=== PATIENT | male | born 1990 | race Caucasian/White ===

== ENCOUNTER 2020-11-13 17:10 | Emergency (ER) | payer MEDICAID, SELFPAY ==
--- NOTE | ~2020-11-13 | XR_ITS ---
XR elbow RT min 3V DATE: 11/13/2020 17:42 INDICATION: Fall, elbow injury, pain, swelling, redness TECHNIQUE: 4 views COMPARISON: None FINDINGS: No fracture or dislocation or joint effusion. No periosteal reaction or bone destruction. IMPRESSION: No significant abnormality Reviewed, dictated and finalized at location A. IMPRESSION: No significant abnormality
[2020-11-13 17:23] VITALS: BP 161/86; PULSE 91; RESP 18; TEMP 36.9; O2SAT 99
--- NOTE | 2020-11-13 18:33 | ED.SKABFB ---
HPI - Skin/Abscess/Foreign Bdy General Chief complaint: Skin/Abscess/Foreign Body Stated complaint: R ELBOW REDNESS Time Seen by Provider: 11/13/20 17:44 Source: patient and family Mode of arrival: ambulatory Limitations: no limitations History of Present Illness HPI narrative: 30-year-old male Patient is in good health About 2 weeks ago he was on vacation and hiking in [place] and slipped while playing a waterfall and cracked his elbow on a rock It was a little sore initially but now is mildly erythematous and swollen in the area of the olecranon bursa He has full range of motion and there is no distal neurovascular symptoms No fever, and no redness extending up the arm Related Data Allergies Allergy/AdvReac Type Severity Reaction Status Date / Time Yellow Jacket Allergy Unknown Swelling Uncoded 03/28/18 21:24 Review of Systems Review of Systems: All systems reviewed & are unremarkable except as noted in HPI and below Constitutional: Constitutional: Reports no additional constitutional complaints, Denies chills, Denies fever(s) and Denies headache(s) ENT: Denies headache(s) Cardiovascular: Cardiovascular: Denies dyspnea Gastrointestinal: Gastrointestinal: Denies vomiting Musculoskeletal: Musculoskeletal: Denies deformity, Reports arthralgias, Reports joint swelling and Denies numbness Integumentary/Breasts: Skin/Breast: Reports rash and Denies wounds Neurologic: Denies numbness Hematologic/Lymphatic: Hematologic/Lymphatic: Denies easy bleeding and Denies easy bruising PMFSH Social History Social History Gender identity (if verbalized by the patient): Male Exam Const: General: cooperative and no acute distress Orientation/consciousness: patient oriented x3 (alert) HENMT: Head: normal to inspection, normocephalic and atraumatic Ears: external ears normal General nose exam: no epistaxis Eyes: Conjunctivae: conjunctivae normal EOM: EOMs intact bilaterally Neck: Neck: normal visual inspection, supple and no JVD Resp: Effort & Inspection: normal respiratory effort and not labored Auscultation: other (BS =) Skin: General skin exam: no rashes or lesions noted Neuro: General: patient oriented x3 (alert) and moves all extremities Speech: normal speech Extrem: Other: Right olecranon bursa, small effusion, mildly tender, mildly erythematous over the olecranon, full range of motion of the elbow in all directions, normal peripheral pulses sensation cap refill Psych: Affect: normal affect Course Vital Signs Vital signs: Vital Signs Temperature 36.9 C 11/13/20 17:23 Pulse Rate 91 11/13/20 17:23 Respiratory Rate 18 11/13/20 17:23 Blood Pressure 161/86 H 11/13/20 17:23 Pulse Oximetry 99 11/13/20 17:23 Temperature 36.9 C 11/13/20 17:23 Pulse Rate 91 11/13/20 17:23 Respiratory Rate 18 11/13/20 17:23 Blood Pressure 161/86 H 11/13/20 17:23 Pulse Oximetry 99 11/13/20 17:23 Discharge Plan Discharge Clinical Impression: Infection of right olecranon bursa Patient Disposition: Home, Self-Care Condition: Stable Instructions: Antibiotic Form, Cellulitis (ED), Elbow Bursitis (ED) Additional Instructions: In addition to antibiotic, please take [id number] Aleve twice a day, and ideally cover your elbow with a to protect it from minor knocks and bumps while it heals up Prescriptions: New cephalexin 500 mg capsule 500 mg PO Q6H 7 Days Qty: 28 RF: 0 Follow-up/Referrals: Clayton Pickering MD [Physician] - (Primary care in this area, as needed) [facility] [Primary Care Provider] -
[2020-11-13 18:39] VITALS: BP 144/100; PULSE 89; RESP 12; O2SAT 99
[2020-11-13 19:03] VITALS: BP 135/98
== END 2020-11-13 18:46 | disposition home or self-care (01) ==
PROVIDERS: Emergency Provider Emergency Medicine
DX: M71.121 Other infective bursitis, right elbow (principal)
CPT/HCPCS: 73080; 99283

== ENCOUNTER 2021-09-06 11:01 | Emergency (ER) | payer MEDICAID, SELFPAY ==
--- NOTE | ~2021-09-06 | XR_ITS ---
EXAMINATION: XR chest 2V DATE: 09/06/2021 11:45 INDICATION: Cough. Fever. TECHNIQUE: Frontal and lateral views of the chest were obtained. COMPARISON: Chest 2 views 03/28/2018 FINDINGS: The chest demonstrates clear lungs without pneumonia, pleural effusion, or pneumothorax. Th e heart size is normal. IMPRESSION: 1. No acute cardiopulmonary disease. Reviewed, dictated and finalized at location A.
--- NOTE | 2021-09-06 11:14 | ED.URI ---
HPI - URI/Sore Throat General Chief Complaint: Upper Respiratory Infection Stated Complaint: headache, cough Time Seen by Provider: 09/06/21 11:08 Source: patient History of Present Illness HPI Narrative: Patient presents with cough. Patient reports he has been coughing for the past 2 days getting progressively worse today he had subjective fevers and chills so he came to the ER for further evaluation. He also reported some hemoptysis today. He reports he has previously had bronchitis and thinks maybe something similar is happening today. Denies any known sick contacts denies any nausea or vomiting. Reports his cough is so severe it is causing some sore throat and headache. He took ibuprofen and Excedrin prior to come to the ER and is not noted any significant benefit. Denies recent hospitalizations recent surgeries recent long travel prior history of blood clots. He reports he does vape. Related Data Allergies Allergy/AdvReac Type Severity Reaction Status Date / Time Yellow Jacket Allergy Unknown Swelling Uncoded 03/28/18 21:24 Review of Systems Review of Systems: CONSTITUTIONAL: Denies fever, chills, or sweats. EYES: Denies visual changes, redness, or discharge. ENT: Denies rhinorrhea, congestion, sore throat, or otalgia. CARDIOVASCULAR: Denies chest pain, palpitations, or edema. RESPIRATORY: Reports productive cough GASTROINTESTINAL: Denies abdominal pain, nausea, vomiting, or diarrhea. GENITOURINARY: Denies dysuria or hematuria. SKIN: Denies rash or itching. MUSCULOSKELETAL: Denies back pain, joint pain, or myalgia. NEUROLOGIC: Denies headache, numbness, dizziness, or weakness. PSYCHIATRIC: Denies anxiety or depression. All systems reviewed & are unremarkable except as noted in HPI and below PMFSH Past Medical History Medical History (Updated 09/06/21 @ 12:38 by Ruslan David MD) Bronchitis Social History Social History (Updated 09/06/21 @ 11:16 by Ruslan David MD) Tobacco type: e-cigarettes/vaping Gender identity (if verbalized by the patient): Male Exam Narrative: GENERAL: Well-appearing, well-nourished, and in no acute distress. HEAD: Normocephalic, atraumatic. EYES: PERRLA and EOMI. ENT: Nares clear, no rhinorrhea or epistaxis. Mucous membranes moist. Erythema in the posterior pharynx NECK: Supple. No masses. No JVD CHEST: Clear to auscultation. No respiratory distress. No wheezes rales or rhonchi HEART: Regular rate and rhythm. No murmur heard. Normal peripheral pulses. EXTREMITIES: Normal range of motion. No edema. SKIN: Warm, dry, no rash. NEURO: No focal deficits. Alert and oriented x3. PSYCH: Normal mood and affect. Course Reevaluation(s) Reevaluation #1: Patient reports feeling much improved after DuoNeb treatment. Work-up reviewed with patient. Patient is comfortable with outpatient plan Date: 09/06/21 Time: 12:36 Vital Signs Vital signs: Vital Signs Temperature 37.2 C 09/06/21 11:19 Pulse Rate 110 H 09/06/21 11:19 Respiratory Rate 20 09/06/21 11:19 Blood Pressure 144/98 H 09/06/21 11:19 Pulse Oximetry 97 09/06/21 11:19 Temperature 37.2 C 09/06/21 11:19 Pulse Rate 78 09/06/21 12:50 Respiratory Rate 16 09/06/21 12:50 Blood Pressure 120/90 09/06/21 12:50 Pulse Oximetry 98 09/06/21 12:50 MDM - URI/Sore Throat MDM Narrative Medical decision making narrative: H&P as above, vss, pt looks clinically well, exam with clear lungs, labs clinically unremarkable, img clinically unremarkable, additional labs/img considered, symptomatic relief available as needed, patient treated with duo nebs on reevaluation pt continues to looks clinically well and reports feeling much improved. Suspect viral bronchitis, dns severe sepsis consider dehydration, PE, dissection, pneumothorax, bacterial pneumonia. plan to tx/monitor as op w/ pcm f/u findings/plan discussed with pt, pt agree/comfortable with plan, return precautions given. Patient was counseled on his vap
[2021-09-06 11:19] VITALS: BP 144/98; PULSE 110; RESP 20; TEMP 37.2; O2SAT 97
[2021-09-06 11:30] VITALS: PULSE 98; RESP 12
[2021-09-06] MEDS: ALBUTEROL SULFATE NEB 2.5 MG/0.5 ML INH 5 MG INHALATION (11:34)
[2021-09-06] MEDS: IPRATROPIUM BR 0.02% INH SOLN 0.5 MG/2.5 ML VIAL INHALATION (11:34)
[2021-09-06 11:35] VITALS: PULSE 99; RESP 12
[2021-09-06] MEDS: SODIUM CHLORIDE 0.9% IV 1,000 ML 999 ML IV CONT (11:38)
[2021-09-06 11:43] LABS: Basophils Percent Auto 0.5 % (0.2-1.2); Eosinophils Absolute Auto 0.1 K/mm3 (0-0.3); Eosinophils Percent Auto 1.1 % (0-4.4); Hematocrit 46.5 % (42.0-52.0); Hemoglobin 15.8 g/dL (14.0-18.0); Immature Granulocyte Absolute 0.02 K/mm3 (0.00-0.031); Immature Granulocyte Percent A 0.2 % (0-0.5); Lymphocytes Absolute Auto 1.15 K/mm3 (0.9-3.2); Lymphocytes Percent Auto 13.7 % (18.3-44.2); Mean Corpuscular Hemoglobin 30.8 pg (26-34); Mean Corpuscular Volume 90.6 fl (80-100); Mean Platelet Volume 9.3 fl (7.4-10.4); Monocytes Percent Auto 11.3 % (2.6-8.5); Neutrophils Absolute Auto 6.2 K/mm3 (1.3-6.7); Neutrophils Percent Auto 73.2 % (45.5-73.1); Platelet Count Result 249 k/mm3 (150-375); Red Blood Count 5.13 M/mm3 (4.6-6.20); Red Cell Distribution Width 12.6 % (11.5-14.5); White Blood Count 8.4 K/mm3 (4.5-10.0)
[2021-09-06 12:03] LABS: Alanine Aminotransferase 41 U/L (4-50); Albumin Level 4.6 g/dL (3.5-5.1); Alkaline Phosphatase 86 U/L (38-126); Anion Gap 9 mmol/L (8-16); Aspartate Amino Transferase 37 U/L (17-59); Bilirubin,Total 0.4 mg/dL (0.2-1.3); Blood Urea Nitrogen 12 mg/dL (9-20); Calcium 9.1 mg/dL (8.4-10.2); Carbon Dioxide 26 mmol/L (22-30); Chloride 102 mmol/L (98-107); Estimated CRCL calculation 108 ml/min; Estimated Glomerular Filt Rate > 60; Glucose 107 mg/dL (65-110); Sodium 137 mmol/L (137-145)
[2021-09-06 12:05] VITALS: O2SAT 90
[2021-09-06 12:10] VITALS: O2SAT 99
[2021-09-06 12:18] LABS: SARS-CoV-2 RNA PCR Negative
[2021-09-06 12:50] VITALS: BP 120/90; PULSE 78; RESP 16; O2SAT 98
== END 2021-09-06 12:52 | disposition home or self-care (01) ==
PROVIDERS: Emergency Provider Emergency Medicine
DX: J40 Bronchitis, not specified as acute or chronic (principal); F17.290 Nicotine dependence, other tobacco product, uncomplicated; Z20.822 Contact with and (suspected) exposure to COVID-19
CPT/HCPCS: 36415; 71046; 80053; 85025; 87804; 94640; 96360; 99283; C9803; J7030; U0003; U0005

== ENCOUNTER 2022-09-24 08:32 | Emergency (ER) | payer MEDICAID, SELFPAY ==
--- NOTE | ~2022-09-24 | XR_ITS ---
EXAMINATION: XR shoulder RT min 2V INDICATION: Right shoulder pain TECHNIQUE: Four views of the right shoulder are submitted. COMPARISON: None FINDINGS: Normal alignment. No fracture. Glenohumeral and acromioclavicular joint spaces are normal. Soft tissues are unremarkable. IMPRESSION: 1. No acute osseous abnormality. Reviewed, dictated and finalized at location L.
[2022-09-24 08:37] VITALS: BP 156/113; PULSE 77; RESP 18; TEMP 36.4; O2SAT 100
--- NOTE | 2022-09-24 09:18 | ED.UPPEXIN ---
HPI - Extremity Injury (Upper) General Chief Complaint: Extremity Injury, Upper Stated Complaint: right shoulder pain Time Seen by Provider: 09/24/22 08:53 History of Present Illness HPI narrative: Patient is a 32-year-old male here for evaluation of right shoulder pain x1 day. Patient states that he was washing his hair in the shower when he felt a tightness in his right shoulder and believes he heard an audible pop . Since the incident he has had pain in his right posterior shoulder with range of motion. He has attempted Tylenol, meloxicam and methocarbamol that were prescribed for previous back injury without relief. He has no pain at rest but has pain with external and internal rotation. No weakness, numbness, tingling, neck pain or further injury sustained. Related Data Allergies Allergy/AdvReac Type Severity Reaction Status Date / Time Yellow Jacket Allergy Unknown Swelling Uncoded 09/24/22 08:42 Review of Systems Review of Systems: Gen.: Denies fevers or chills Eyes: Denies eye pain or visual change ENT: Denies congestion Respiratory: Denies shortness of breath or cough CV: Denies chest pain or palpitations GI: Denies abdominal pain nausea, emesis or diarrhea denies burning, urgency, frequency or hematuria Musculoskeletal: Reports right shoulder pain Neuro: Denies numbness, tingling, weakness or focal weakness Skin: Denies rash Except as documented, all other systems reviewed and negative PMFSH Past Medical History Medical History Bronchitis Social History Social History (Updated 09/06/21 @ 11:16 by Ruslan DavidMD) Tobacco type: e-cigarettes/vaping Gender identity (if verbalized by the patient): Male Exam Narrative: APPEARANCE: Well appearing, no pain in distress, well-nourished. Head: Normocephalic and atraumatic. EYES: PERRLA/EOMI, conjunctivae clear NOSE: No nasal drainage EARS: External ear normal in appearance THROAT: Oropharynx is clear. Mucous membranes are moist. NECK: Supple. No adenopathy, no masses. RESPIRATORY: Airway patent, respirations nonlabored. Clear to auscultation bilaterally, no rales, rhonchi, wheezing. CARDIOVASCULAR: Regular rate and rhythm without murmurs, rubs, or gallops. ABDOMINAL: Normoactive bowel sounds. Soft, nontender, nondistended. No rebound tenderness or guarding. MUSCULOSKELETAL: There is some paraspinal muscle tenderness along the right cervical spine. There is no bony tenderness to palpation along the clavicle, humeral head, olecranon or hand. Patient has 5 out of 5 strength in the upper extremity but does report pain with range of motion, particularly abduction past 90 degrees. Hawkin's test is positive. Empty can test is positive. NEURO: Normal speech. No focal neurologic deficits. SKIN: Skin is warm and dry. No rashes. PSYCHIATRIC: Normal affect/mood. Course Vital Signs Vital signs: Vital Signs Temperature 97.5 F L 09/24/22 08:37 Pulse Rate 77 09/24/22 08:37 Respiratory Rate 18 09/24/22 08:37 Blood Pressure 156/113 H 09/24/22 08:37 Pulse Oximetry 100 09/24/22 08:37 Oxygen Delivery Room Air 09/24/22 08:37 Temperature 97.5 F L 09/24/22 08:37 Pulse Rate 77 09/24/22 08:37 Respiratory Rate 18 09/24/22 08:37 Blood Pressure 156/113 H 09/24/22 08:37 Pulse Oximetry 100 09/24/22 08:37 Oxygen Delivery Room Air 09/24/22 08:37 MDM - Extremity Injury (Upper) MDM Narrative Medical decision making narrative: 32-year-old male here for evaluation of right shoulder pain over the past day, onset after he was taking a shower and washing his hair, did feel a pop in his shoulder. Patient has no gross deformities on exam, he does have some tenderness to palpation along the paraspinal musculature of the neck. He has a positive Wu and empty can test, but does have full range of motion in the shoulder. Considered fracture, dislocation, rotator cuff tear.
[2022-09-24] MEDS: KETOROLAC 30 MG/ML VIAL (*BKC) IM (09:29)
[2022-09-24] MEDS: LIDOCAINE 5% PATCH 1 PATCH TRANSDERM (09:30)
== END 2022-09-24 09:35 | disposition home or self-care (01) ==
PROVIDERS: Emergency Provider Physician Assistant
DX: S43.401A Unspecified sprain of right shoulder joint, initial encounter (principal); X50.0XXA Overexertion from strenuous movement or load, initial encounter
CPT/HCPCS: 73030; 96372; 99283; A9270; J1885

== ENCOUNTER 2022-12-10 10:45 | Outpatient (RCR) | payer MEDICAID, OTHER, SELFPAY ==
--- NOTE | 2022-10-24 17:14 | OPREHPOC ---
Outpatient Therapy Plan of Care This is a Multidisciplinary Plan of Care that may contain components documented by all disciplines (PT, OT, and ST.) PT Problem 1 PT Problem #1 Knowledge Deficit PT Goal 1 Goal Independent with HEP Target Visit 6 PT Problem 2 PT Problem #2 Pain PT Goal 1 Goal decrease pain to 1/10 at its worst Target Visit 6 PT Goal 2 Goal Centralization of symptoms to the shoulder Target Visit 6 PT Problem 3 PT Problem #3 Impaired Range of Motion PT Goal 1 Goal L shoulder active range of motion of abduction 165 degrees external rotation T3 Internal rotation T8 Target Visit 6 PT Problem 4 PT Problem #4 Impaired Strength PT Goal 1 Goal no pain with manual muslce testing. Target Visit 6
--- NOTE | 2022-10-24 17:14 | PTOPEVAL1 ---
Assessment and note entered by Randal Mann, PT Evaluation Information Assessment Status Evaluation Diagnosis R shoulder pain with radiating symptoms Onset 09/23/22 Subjective Information Patient went to the ER on the 24 of September after reaching above his head to shampoo his hair the previous night. X-ray negative, seen by ortho and given steroid which he reports has made severe pain manageable. Is left handed so has not been doing much with his R arm. Has numbness and tingling running down to his hands along with pain up his neck, and into his shoulder blades, Reported Pain Level Pain Score 3: Self Report Assessment PT Clinical Summary Jesu is a 32 year old male coming into the clinic with R shoulder pain. He has a painful arc in flexion and abduction along with a positive lift off test and pain with resisted abduction, flexion, external rotation, scapular retraction and elevation. Decreased shoulder range of motion and tenderness from suboccipitals, upper traps, and acromion process. Physical therapy will work on stretching and relaxing the upper traps, suboccipitals along with improving range of motion in the shoulder and below shoulder height strengthening. Modalities and manual therapy as needed for pain control. Plan of Care Interventions Electrical Stimulation,Gait Training,Hot Pack/Cold Pack,Manual Therapy,Mechanical Traction,Neuro Re- education,Patient/Caregiver Education,Therapeutic Activities,Therapeutic Exercise,Ultrasound Other Interventions taping, cupping, IASTM PT Services Indicated Yes Treatment Frequency and 1-2x/wk for 4 weeks Duration These treatments will address the objective and functional deficits as defined above. The patient will be advanced safely and appropriately in order for the patient to progress towards his/her prior level of function. Additional exercises will be introduced and as well as a comprehensive home exercise program upon discharge, if needed, ?to ensure carryover of functional gains achieved in the clinic. This treatment plan has been reviewed and agreement upon by the patient.
--- NOTE | 2022-10-30 15:40 | PCPTNOTE ---
Patient did not show up for scheduled appointment this date. Called and spoke with Pt. He apologized I completely forgot that was today. Reassured Pt and informed him, his next appointment is Friday11/05/22 @ 11:15. Pt assured he would be there.
--- NOTE | 2022-11-14 16:03 | PCPTNOTE ---
Pt had to cancel today due to being held over at work. Pt rescheduled for tomorrow.
--- NOTE | 2022-11-20 15:12 | PCPTNOTE ---
Patient called & cancelled scheduled appointment this date due to transportation issues.
--- NOTE | 2022-12-10 16:29 | PTOPEVDC ---
Assessment and note entered by Roque Arellano, PT Thank you for referring Jesu Fong to [facility].? An evaluation has been completed. No further treatment is needed. Evaluation Information Assessment Status Discharge Diagnosis R shoulder pain with radiating symptoms Onset 09/23/22 Subjective Information Patient reports that he feels therapy has really helped. He is denying pain with activity and is 90 % better than when he first came to therapy. No concerns at this time and has good understanding of HEP for alf progress. Reported Pain Level Pain Score 0: Self Report Assessment PT Clinical Summary Patient met all of his personal and clinical goals for therapy at this time. He is reporting no pain or discomfort with cervical and shoulder motion. Has a good understanding of HEP and able to reflect it in therapy. Suitable for Discharge at this time. Plan of Care Interventions Electrical Stimulation,Gait Training,Hot Pack/Cold Pack,Manual Therapy,Mechanical Traction,Neuro Re- education,Patient/Caregiver Educati,Therapeutic Activities,Therapeutic Exercise,Ultrasound Other Interventions taping, cupping, IASTM PT Services Indicated Yes Treatment Frequency and 1-2x/wk for 4 weeks Duration
--- NOTE | 2022-12-10 16:30 | OPREHPOC ---
Outpatient Therapy Plan of Care This is a Multidisciplinary Plan of Care that may contain components documented by all disciplines (PT, OT, and ST.) PT Problem 1 PT Problem #1 Knowledge Deficit PT Goal 1 Goal Independent with HEP Target Visit 6 Progress Met PT Problem 2 PT Problem #2 Pain PT Goal 1 Goal decrease pain to 1/10 at its worst Target Visit 6 Progress Met PT Goal 2 Goal Centralization of symptoms to the shoulder Target Visit 6 Progress Met PT Problem 3 PT Problem #3 Impaired Range of Motion PT Goal 1 Goal L shoulder active range of motion of abduction 165 degrees external rotation T3 Internal rotation T8 Target Visit 6 Progress Met PT Problem 4 PT Problem #4 Impaired Strength PT Goal 1 Goal no pain with manual muslce testing. Target Visit 6 Progress Met
== END 2022-12-13 11:32 | disposition home or self-care (01) ==
LOC: ANHPT 10:45
PROVIDERS: Visit Provider Physician Assistant Surgical
DX: M54.12 Radiculopathy, cervical region (principal); S46.911D Strain of unspecified muscle, fascia and tendon at shoulder and upper arm level, right arm, subsequent encounter
CPT/HCPCS: 97014; 97110; 97140; 97161; 99199; G0283

== ENCOUNTER 2023-09-22 19:28 | Emergency (ER) | payer SELFPAY ==
--- NOTE | ~2023-09-22 | XR_ITS ---
EXAM: XR shoulder RT min 2V DATE: 09/22/2023 20:02 HISTORY: PT FELL OFF MOVING WORK TRUCK TODAY . COMPARISON: None available. FINDINGS: Normal mineralization. No fracture or dislocation. No lytic or blastic lesion. Joint space s are maintained. No erosion or periosteal change. Soft tissues within normal limits. IMPRESSION: No acute osseous finding in the right shoulder. Reviewed, dictated and finalized at location K.
--- NOTE | ~2023-09-22 | XR_ITS ---
EXAM: XR knee LT min 4V DATE: 09/22/2023 20:02 HISTORY: PT FELL OFF MOVING WORK TRUCK TODAY . COMPARISON: None available. FINDINGS: Normal mineralization. No fracture or dislocation. No lytic or blastic lesion. Mild knee o steoarthritis. No erosion or periosteal change. Mild anterior soft tissue swelling. IMPRESSION: No acute osseous finding in the left knee. Reviewed, dictated and finalized at location K.
[2023-09-22 19:45] VITALS: BP 155/100; PULSE 94; RESP 18; TEMP 36.6; O2SAT 100
--- NOTE | 2023-09-22 21:01 | PC.NURSE ---
Pt ambulatory to barn [facility] i am not going to wait anylonger. Do you know where I am on the list? I am going to go, ill just call my dr in the morning. Pt informed if he felt like he needs to be seen, he is welcome to come back any time.
== END 2023-09-22 21:01 | disposition left against medical advice (07) ==
LOC: ANHED 21:12
PROVIDERS: Emergency Provider Emergency Medicine
DX: M25.511 Pain in right shoulder (principal)
CPT/HCPCS: 73030; 73564; 99199

== ENCOUNTER 2024-12-22 19:17 | Emergency (ER) | payer SELFPAY ==
--- OUTSIDE RECORDS SUMMARY | 2024-12-22 19:19 | XMS_ITS | Continuity of Care Document ---
Author Organization [facility] Address [address] [place] [address] [place] [address] Phone Care Team Providers Care [employer] Name Role Phone Unavailable Unavailable Unavailable Allergies, Adverse Reactions, Alerts Substance Reaction Status Criticality No Known Allergies Resolved No Inform ation Medications Medication Instructions Dosage Effective Dates (start - stop) Status Comments Celebrex 200 mg capsule i po daily - Active Can you please cancel the preceding rx that was sent today for Celebrex 100mg? Thank you! cyclobenzaprine 10 mg tablet take 1 tablet by oral route 3 times every day 10 MG - Active Prilosec OTC 20 mg tablet,delayed release i po qam - Active Procedures Procedure Date HEALTH RISK ASSESSMENT TEST NEW OFFICE/OUTPATIENT VISIT Advance Directives Directive Yes / No Effective Date File Name No Information Encounters Encounter Description Practice Location Reason(s) For Visit Diagnoses Date Provider Providers Copied on Encounter [facility], [address] [place] [address], [id number], tel:[phone] [facility] [place] No Information 7 No Information [facility], [address] [place] [address], [id number], tel:[phone] [facility] [place] No Information 6 Michel Crane. [address] [place] [address], [id number], [place]. tel:[phone] HEALTH RISK ASSESSMENT TEST [facility], [address] [place] [address], [id number], tel:[phone] [facility] [place] sciatica (chief complaint) heartburn (chief complaint) Sciatica of left sideGastroesophag eal reflux disease, esophagitis presence not specifiedEncounte r for screening, unspecified 6 Jean-Claude Ellis. [address] [place], [address], [place]. tel:[phone] Family History Family Member Type Diagnosis Age At Onset No Information Payers Payer name Insurance type Covered republican ID Tee hernández(s) [facility] [employer] Managed Care [id number] Medi[employer] Differential Rate [id number] Social History Type Description Quantity Date Captured Comments Sex Male Smoking Status No Information Chief Complaint And Reason For Visit No Information Reason For Referral Reason For Referral No Information History Of Present Illness Encounter Date Complaint History Of Prese nt Illness sciatica (comments) patient with h/o lumbar disc disease and subsequent left sided chronic sciatica, he was previously in the which is where he sustained the injury, he had an MRI done one year ago. He was being managed with flexeril and celebrex which he states keeps his sx in good control heartburn (comments) 2 month h/o epigastric burning, denies increase after meals or if laying down, no assoc vomiting or diarrhea, has tried TUMS without success sciatica Onset: 1 year ag o. heartburn Functional Status Date Functional Assessmen t No Information Instructions Date Instruction Additional Infor mation Medications ordered Related to S ciatica of left side Medication is ordere d, return to clinic if symptoms continue to persist after two weeks despite medication Related to Gastroesophageal reflux disease, esophagitis presence not specified Assessments Type Assessment Date No Information Patient Care Teams Name Effective Dates (start - stop) Status Members No Information
[2024-12-22 19:26] VITALS: BP 151/106; PULSE 82; RESP 16; TEMP 37.1; O2SAT 99
--- NOTE | 2024-12-22 22:30 | PC.NURSE ---
Patient called this RN to room and stated I'm going to leave. I can't just sit here and wait much longer, plus all of the pain has subsided. This RN advised patient to return or be seen at the nearest ED if symptoms start to worsen. Pt ambulated to ED exit with steady gait and no signs for concern at this time.
--- OUTSIDE RECORDS SUMMARY | 2024-12-22 23:20 | XMS_ITS | Continuity of Care Document ---
Author Organization [facility] Address [address] [place] [address] [place] [address] Phone Care Team Providers Care Parking Analyst Name Role Phone Unavailable Unavailable Unavailable Allergies, [...] Diagnoses Date Provider Providers Copied on Encounter [facility], [address] [place] [address], [id number], tel:[phone] [facility] [place] No Information [address] [facility], [address] [place] [address], [id number], tel:[phone] [facility] [place] No Information 6 Michel Crane. [address] [place] [address], [id number], [place]. tel:[phone] HEALTH RISK ASSESSMENT TEST [facility], [address] [place] [address], [id number], tel:[phone] [facility] [place] sciatica (chief complaint) heartburn (chief complaint) Sciatica of left sideGastroesophag eal reflux disease, esophagitis presence not specifiedEncounte r for screening, unspecified 6 Jean-Claude Ellis. [address] [place], [address], [place]. tel:[phone] Family History Family Member Type Diagnosis Age At Onset No Information Payers Payer name Insurance type Covered constitution party ID Tee hernández(s) [facility] [employer] Managed Care [id number] [employer] Differential Rate [id number] Social History Type Description Quantity Date Captured [...]
== END 2024-12-22 22:30 | disposition left against medical advice (07) ==
DX: T23.072A Burn of unspecified degree of left wrist, initial encounter (principal); T23.071A Burn of unspecified degree of right wrist, initial encounter
CPT/HCPCS: 99199